=== PATIENT | male | born 1945 | race Caucasian/White ===

== ENCOUNTER 2017-08-25 08:11 | Inpatient (IN) | payer OTHER ==
[~2017-08-25] VITALS: Ht 170.2 cm; Wt 72.4 kg
[2017-08-25] VITALS (8 sets, daily range): BP systolic 0–110; BP diastolic 0–69
[~2017-08-25 08:11] MED LIST: ABILIFY10 MG PO; CARVEDILOL25 MG PO; COGENTIN1 MG PO; DIVALPROEX SOD250 MG PO; EFFEXOR75 MG PO; GEODON20 MG PO; LANTUS 3 M100 UNITS/ SC; LEXAPRO20 MG PO; LISINOPRIL2.5 MG PO; PROTONIX40 MG PO; RITALIN10 MG PO; SYNTHROID50 MCG PO; WELLBUTRIN100 MG PO; ZOCOR40 MG PO
[2017-08-25 08:47] LABS: BASE EXCESS -13.8 mEq/L (-3 to +3); BICARBONATE 10.3 mEq/L (22-26); CARBOXY HGB 1.5 % (0-5); COMMENTS - BLOOD GASES A+C+; DEVICE NC; O2 FLOW 3 L/MIN; PCO2 21 mm Hg (35-45); PO2 69 mm Hg (80-100); SITE LR; TOTAL RESP RATE 40 resp/min
[2017-08-25 08:49] LABS: HEMATOCRIT 47.3 % (38.0-50.0); HEMOGLOBIN 15.5 G/DL (12.5-16.6); MCH 31.6 PG (29.0-34.0); MCHC 32.8 G/DL (30.0-36.0); MCV 96.3 FL (86-99); PLATELET COUNT 90 K/uL (156-360); RBC DIS.WIDTH-CV 14.6 % (11.8-14.6); RBC DIS.WIDTH-SD 50.9 % (39-53); RED BLOOD COUNT 4.91 M/uL (4.00-5.50); WHITE BLOOD COUNT 5.6 K/uL (4.1-10.2)
[2017-08-25 08:55] LABS: APPEARANCE TURBID ((CLEAR)); BILIRUBIN MODERATE; BLOOD MODERATE; COLOR AMBER ((YELLOW)); GLUCOSE (STRIP) NEGATIVE; KETONES NEGATIVE; LEUKOCYTES MODERATE; NITRITE NEGATIVE; PROTEIN (STRIP) 100; SPECIFIC GRAVITY 1.026 (1.000-1.030)
[2017-08-25 08:57] LABS: ICTOTEST ND
[2017-08-25 09:14] LABS: BACTERIA 2+ /HPF; EPITHELIAL CELLS 2+ /HPF; MUCUS 1+ /LPF; RED BLOOD CELLS TNTC /HPF (0-5); UCUL ADDED? YES; WHITE BLOOD CELLS TNTC /HPF (0-5)
[2017-08-25 09:18] LABS: ALBUMIN 3.3 G/DL (3.2-4.8); ALKALINE PHOSPHATASE 192 IU/L (3-129); ALT (GPT) 230 IU/L (3-49); AST (GOT) 203 IU/L (2-34); CHLORIDE 100 MEQ/L (99-109); CREATININE 4.6 MG/DL (0.6-1.3); GFR ESTIMATE (CALCULATED) 13 mL/min/ (58.99-99999); GLUCOSE 114 mg/dL (70-99); POTASSIUM 3.7 MEQ/L (3.7-5.4); SODIUM 140 MEQ/L (136-147); TOTAL BILIRUBIN 3.5 MG/DL (0.0-1.0); TOTAL PROTEIN 6.1 G/DL (6.4-8.3); UREA NITROGEN (BUN) 50 mg/dL (9-23); VALPROIC ACID (DEPAKOTE) 25.4 MCG/ML (50-100)
[2017-08-25 09:34] LABS: TROP-I INTERPRETATION POSITIVE; TROPONIN-I 0.81 ng/mL (0.0-0.30)
[2017-08-25 09:35] LABS: ABS NEUTROPHIL COUNT 4.3; ATYPICAL LYMPHOCYTE 0.9 %; BAND NEUTROPHILS 25.2 % (0-8.0); EOSINOPHIL ABS CT 0; LYMPHOCYTES 6.1 % (15.0-45.0); METAMYELOCYTES 7.8 %; MONOCYTES 5.2 % (0-9.0); MYELOCYTES 2.6 %; PLAT.SUFFICIENCY DECREASED; SEG.NEUTROPHILS 52.2 % (46.0-76.0)
[2017-08-25] MEDS ORDERED: ATORVASTATIN CA10 MG PO (10:22)
[2017-08-25] MEDS ORDERED: ASPIR-LOW81 MG PO (10:24)
[2017-08-25 16:29] LABS: INTER. NORMALIZED RATIO ND
[2017-08-25 16:31] LABS: PTT ND SEC (25-37)
[2017-08-25 17:47] LABS: INTER. NORMALIZED RATIO 1.8
[2017-08-25 18:05] LABS: PTT 270.8 SEC (25-37)
== END 2017-08-25 17:48 | DRG 871 ==
LOC: EME 08:11 → EDOF 09:53 → ENRESERV 09:55 → 4WEST 10:57
PROVIDERS: Emergency Medicine; Internal Medicine Critical Care Medicine
DX: A41.9 Sepsis, unspecified organism (principal); N39.0 Urinary tract infection, site not specified; I21.4 Non-ST elevation (NSTEMI) myocardial infarction; N17.9 Acute kidney failure, unspecified; F31.9 Bipolar disorder, unspecified; J18.9 Pneumonia, unspecified organism; K80.00 Calculus of gallbladder with acute cholecystitis without obstruction; R65.21 Severe sepsis with septic shock; R09.02 Hypoxemia; I10 Essential (primary) hypertension; J44.0 Chronic obstructive pulmonary disease with (acute) lower respiratory infection; E11.9 Type 2 diabetes mellitus without complications; E87.2 Acidosis; Z66 Do not resuscitate; Z87.891 Personal history of nicotine dependence; K40.20 Bilateral inguinal hernia, without obstruction or gangrene, not specified as recurrent
CPT/HCPCS: 36600; 71045; 74176; 76705; 80053; 80164; 81003; 82436; 82570; 82803; 83605; 83880; 83935; 84133; 84300; 84484; 85025; 85027; 85610; 85730; 87040; 87077; 87186; 87641; 87801; 93005; 93306; 94002; 94799; 99281; 99285; C1751; J1644; J2543; J3370; J7030; J7050